=== PATIENT | female | born 1995 | race Asian ===

== ENCOUNTER 2023-11-07 08:02 | Emergency (ER) | payer BC ==
[~2023-11-07] VITALS: Ht 157.5 cm; Wt 47.6 kg
[2023-11-07 09:27] VITALS: BP 121/64; TEMP 97.6; O2SAT 100
== END 2023-11-07 09:28 | disposition home or self-care (01) ==
LOC: ER 08:21
DX: S00.03XA Contusion of scalp, initial encounter (principal); Z87.440 Personal history of urinary (tract) infections; Z60.2 Problems related to living alone; W22.8XXA Striking against or struck by other objects, initial encounter; Y93.89 Activity, other specified; Y92.89 Other specified places as the place of occurrence of the external cause; Y99.8 Other external cause status
CPT/HCPCS: 70450; A4606; A4663